=== PATIENT | female | born 1980 | race Caucasian/White ===

== ENCOUNTER 2023-11-15 01:17 | Day surgery (SDC) | payer BC, SELFPAY ==
[2023-11-10 10:19] VITALS: BMI 32.3
--- NOTE | 2023-11-10 10:34 | PC.NURSE ---
Report to the Outpatient Waiting Room, entrance under the green pavilion located off [facility], at time _0915_ on date _[id number]_. Planned Procedure Time: _1115_. Time changes happen often and if your time is changed the preop area will call you the afternoon before. - You and your visitor will be asked to self-screen and do not enter if you have any COVID symptoms. - A mask is optional within the hospital at this time. Patients may have clear liquids (water, carbonated beverages, clear teas, apple juice) until 3 hours prior to surgery with a maximum of 20 ounces. - No food from midnight until time of surgery Take the following medications with a SIP of water the morning of surgery: Flonase and inhalers if needed. DO NOT STOP ANY OF YOUR OTHER PRESCRIPTION MEDICATIONS PRIOR TO SURGERY ?EXCEPT THE FOLLOWING Medications to discontinue per physician None Date to take last dose Please no make-up, nail uzbek, hairspray, perfume, deodorant, or body powder the day of surgery. No jewelry (including any body piercings) or valuables the day of surgery, leave them at home. Please take a shower or bath the night before, or the morning of, surgery with an antibacterial soap. Wear comfortable, loose fitting clothing. - Jewelry must be removed prior to entering the operating room. Rings and piercings that are not removed may be cut off. - The hospital will not accept responsibility for valuables. - Please leave all valuables, including medications, at home the day of surgery. If you are going home after surgery, a licensed non emergency services ambulance driver must drive you home. - NO public transportation without another adult if you receive anesthesia. - We recommend that an adult stay with you for 24 hours following discharge. - We also recommend that you do not drive, make important decision, drink alcoholic beverages, or take any drugs that were not prescribed by your health care provider for at least 24 hours after your discharge time. Follow any additional instructions given to you from your surgeon. If you or anyone in your household have experienced Covid symptoms in the past week, please notify your surgeon or the nurse liaison at the phone number below for possible testing. Telephone instructions given to _July__and asked if any additional questions and then verbalized understanding. Patient advised to call surgeon office or pre surgery nurse liaison [phone] if any additional questions.
--- NOTE | 2023-11-15 07:32 | P.PNAN_ITS ---
Anes - Initial Pre Proc Eval Procedure: Operation Date: 11/15/23 11:15 Proposed Procedures p Hysteroscopy, Dilation and Curettage - Asya Jones MD Date/Time: 11/15/23 07:32 Surgeon: Asya Jones MD Pre Op Diagnosis: menorrhagia Patient Data Age: 43 Gender: F Height: 1.68 m Weight: 90.9 kg Allergies Allergy/AdvReac Type Severity Reaction Status Date / Time Sulfa (Sulfonamide Allergy Severe Swelling Verified 11/10/23 10:14 Antibiotics) of Lip/Tongue/Throat Home Medications Medication Instructions Recorded Confirmed Type albuterol sulfate 90 mcg/actuation 2 inh inhalation BID PRN Dyspnea 11/10/23 11/10/23 History aerosol inhaler cetirizine 10 mg tablet (Zyrtec) 10 mg PO DAILY 11/10/23 11/10/23 History dextroamphetamine-amphetamine ER 30 mg PO DAILY 11/10/23 11/10/23 History 30 mg 24hr capsule,extend release fluticasone propionate 220 2 inh inhalation BID 11/10/23 11/10/23 History mcg/actuation HFA aerosol inhaler fluticasone propionate 50 1 spray intranasal DAILY 11/10/23 11/10/23 History mcg/actuation nasal spray,suspension (Flonase Allergy Relief) losartan 25 mg tablet 25 mg PO DAILY 11/10/23 11/10/23 History Patient hx anesthesia problems: other (woken up during GIVS twice) Family hx anesthesia problems: none Results Review: All pre-operative results and documents have been reviewed as part of the pre- operative evaluation. [facility] Past Medical History Medical History (Updated 11/15/23 @ 08:03 by Asya Jones MD) ADHD Anxiety and depression Diverticulosis Fatty liver Fibromyalgia Gastroparesis GERD (gastroesophageal reflux disease) History of endometriosis Hypertension Irritable bowel syndrome (normal spontaneous vaginal delivery) x1 MARCO (obstructive sleep apnea) Surgical History Surgical History (Updated 11/15/23 @ 08:02 by Asya Jones MD) History of appendectomy History of bilateral breast implants History of x2 History of cholecystectomy History of endometrial ablation History of liposuction of abdomen History of tonsillectomy History of tubal ligation with 2nd Social History Social History Years smoked: 25 Smoking status: Current some day smoker Tobacco type: cigarettes Alcohol intake: current Drinks per week: 15 Living arrangements: with family Spiritual care concerns: No Anes - Eval Final PreProcedure Day of Procedure 11/15/23 07:32 Patient weight: obese Heart: regular rate and rhythm Lungs: clear to auscultation Airway: Mallampati scale class II Neurological: alert and oriented Last oral intake: >/= 8 hours ASA classification: III Emergent: no Anesthetic plan: proceed Anesthesia type and monitoring: general GIVS and standard monitoring Results Review: All pre-operative results and documents have been reviewed as part of the pre- operative evaluation. Informed Consent: The patient's anesthetic plan and its attendant risks and benefits were discussed with the patient/family/POA. Questions were solicited and answers provided to the satisfaction of the patient/family/POA.
--- NOTE | 2023-11-15 07:56 | WPDHPUPDATE1 ---
History and Physical Update Update Date/Time: 11/15/23 07:56 History and Physical has been reviewed, including an updated exam of the patient. There are NO changes in the patient's condition. Risks, benefits, and alternatives have been discussed and questions answered. Patient agrees to proceed with procedure.
--- NOTE | 2023-11-15 07:56 | PM.HPGS ---
History of Present Illness History of Present Illness Consent: Risks, benefits, and alternatives have been discussed and questions answered. Patient agrees to proceed with procedure. Chief complaint: menorrhagia Narrative: Shelly Marmolejo is a 43 year old female with abnormal uterine bleeding. The patient underwent endometrial ablation in 2016 and no cycle for approximately 1 year. She then had random spotting again. Patient states her bleeding is every 2 weeks are can be 3 months apart. Pelvic ultrasound shows a lining measuring 9mm. It was recommended to undergo D&C hysteroscopy for further evaluation. Risks of infection, bleeding, perforation, and possible pathology are reviewed. In addition the risk of inability to enter the cavity due to prior ablation is reviewed. Patient was given Cytotec to help with cavity entry. Patient voices understanding and agrees to proceed. Review of Systems Review of Systems: not repeated day of surgery; patient states no changes in status PMFSH Past Medical History Medical History (Updated 11/15/23 @ 08:03 by Asya Jones MD) ADHD Anxiety and depression Diverticulosis Fatty liver Fibromyalgia Gastroparesis GERD (gastroesophageal reflux disease) History of endometriosis Hypertension Irritable bowel syndrome (normal spontaneous vaginal delivery) x1 MARCO (obstructive sleep apnea) Surgical History Surgical History (Updated 11/15/23 @ 08:02 by Asya Jones MD) History of appendectomy History of bilateral breast implants History of x2 History of cholecystectomy History of endometrial ablation History of liposuction of abdomen History of tonsillectomy History of tubal ligation with 2nd Social History Social History Years smoked: 25 Smoking status: Current some day smoker Tobacco type: cigarettes Alcohol intake: current Drinks per week: 15 Living arrangements: with family Spiritual care concerns: No Meds Home Medications and Allergies Home Medications Medication Instructions Recorded Confirmed Type albuterol sulfate 90 mcg/actuation 2 inh inhalation BID PRN Dyspnea 11/10/23 11/10/23 History aerosol inhaler cetirizine 10 mg tablet (Zyrtec) 10 mg PO DAILY 11/10/23 11/10/23 History dextroamphetamine-amphetamine ER 30 mg PO DAILY 11/10/23 11/10/23 History 30 mg 24hr capsule,extend release fluticasone propionate 220 2 inh inhalation BID 11/10/23 11/10/23 History mcg/actuation HFA aerosol inhaler fluticasone propionate 50 1 spray intranasal DAILY 11/10/23 11/10/23 History mcg/actuation nasal spray,suspension (Flonase Allergy Relief) losartan 25 mg tablet 25 mg PO DAILY 11/10/23 11/10/23 History Allergies Allergy/AdvReac Type Severity Reaction Status Date / Time Sulfa (Sulfonamide Allergy Severe Swelling Verified 11/10/23 10:14 Antibiotics) of Lip/Tongue/Throat Exam Const: General: healthy appearing and alert Orientation/consciousness: patient oriented x3 Resp: Effort & Inspection: normal respiratory effort : External Female Exam: normal external appearance Speculum Exam - Vagina: normal appearance of the vagina and normal vaginal discharge Speculum Exam - Cervix: normal appearance of the cervix Bimanual exam- vagina & uterus: uterine size normal and consistency normal Bimanual Exam- Adnexa, other: normal adnexae and No adnexal tenderness Neuro: General: patient oriented x3 Assessment and Plan Assessment and plan (1) Irregular menses: Code(s): N92.6 - Irregular menstruation, unspecified Status: Acute Assessment and Plan: plan to proceed with D&C hysteroscopy
[2023-11-15 09:37] VITALS: BP 157/97; PULSE 71; RESP 16; TEMP 36.1; O2SAT 97
[2023-11-15 09:38] VITALS: BMI 31.6
[2023-11-15 09:46] LABS: BEDSIDEPREGUCG Negative
[2023-11-15] MEDS: ACETAMINOPHEN 500 MG TABLET 1000 MG PO (09:54)
[2023-11-15] MEDS: LACTATED RINGERS 1,000 ML 30 ML IV CONT ×2 (09:59→12:09)
[2023-11-15] MEDS: FAMOTIDINE 20 MG/2 ML VIAL IV PUSH (10:22)
[2023-11-15] MEDS: KETOROLAC 30 MG/ML VIAL (*BKC) IV PUSH (11:48)
[2023-11-15 12:09] VITALS: BP 125/71; PULSE 76; RESP 12; O2SAT 99
--- NOTE | 2023-11-15 12:10 | W.PM.PROC2 ---
Procedure Note - Detailed Date of Procedure 11/15/23 Pre-op Diagnosis menorrhagia Post-op Diagnosis Same Procedure Performed D&C hysteroscopy Surgeon Asya Jones MD Anesthesia MAC Findings cervix was very stenotic; uterus sounds to 9cm Description of Procedure The patient taken to the operating room and placed under anesthesia in the dorsal lithotomy position. She was prepped and draped in usual sterile fashion. [place] speculum was placed in the vagina and the cervix grasped on anterior lip tenaculum. The uterus is unable to be sounded due to internal cervical stenosis. The Hegar 3 dilator is able to pass the internal os. The uterus was then able to be sounded to 9cm. The diagnostic hysteroscope was placed and the endometrium appears consistent with a prior ablation without distinct lesions. Hysteroscope was removed and the sharp OO curette is used to curette the endometrium until a good uterine cry was noted in all areas. All instruments are removed. Patient was awakened from anesthesia and taken to recovery in stable condition. Sponge, needle, and instrument counts are correct per the OR staff. Estimated Blood Loss 5 Drains No Packing No Pathology Yes ( Endometrial curettings) Complications No immediate complications Condition Stable Disposition PACU
[2023-11-15] MEDS: ONDANSETRON INJ 4 MG/2 ML VIAL IV PUSH (12:14)
[2023-11-15 12:20] VITALS: BP 125/71; PULSE 76; RESP 16; O2SAT 96
[2023-11-15] MEDS: fentaNYL CITRATE INJ (*CRX) 100 MCG/2 ML VIAL 25 MCG IV PUSH ×2 (12:38→12:41)
[2023-11-15 12:50] VITALS: BP 119/68; PULSE 59; RESP 16; O2SAT 95
[2023-11-15] MEDS: oxyCODONE HCL (*CRX) 5 MG TAB IR PO (13:14)
[2023-11-15 13:20] VITALS: BP 143/82; PULSE 57; RESP 16
== END 2023-11-15 13:40 | disposition home or self-care (01) ==
PROVIDERS: Anesthesiology; PCP Family Medicine; Visit Provider Obstetrics & Gynecology Gynecology
PROC: 0U5B8ZZ Destruction of Endometrium, Via Natural or Artificial Opening Endoscopic (ICD-10-PCS; CPT 58563; principal; 2023-11-15 11:15)
DX: N92.0 Excessive and frequent menstruation with regular cycle (principal); F90.9 Attention-deficit hyperactivity disorder, unspecified type; F41.8 Other specified anxiety disorders; I10 Essential (primary) hypertension; K21.9 Gastro-esophageal reflux disease without esophagitis; M79.7 Fibromyalgia; K76.0 Fatty (change of) liver, not elsewhere classified; G47.33 Obstructive sleep apnea (adult) (pediatric); Z79.51 Long term (current) use of inhaled steroids; E66.9 Obesity, unspecified; Z68.31 Body mass index [BMI] 31.0-31.9, adult; F17.210 Nicotine dependence, cigarettes, uncomplicated
CPT/HCPCS: 58558; 88305; A9270; J1885; J2250; J2405; J2704; J3010; J7120